=== PATIENT | male | born 1935 ===

== ENCOUNTER 2018-02-24 13:02 | Emergency (ER) | payer OTHER ==
[~2018-02-24] VITALS: Ht 167.6 cm; Wt 79.8 kg
[~2018-02-24 13:02] MED LIST: ASPIR 8181 MG; BUSPIRONE HCL15 MG; CARTIA XT240 MG PO; CLONAZEPAM0.5 MG PO; COZAAR50 MG; COZAAR50 MG PO; HYDROCHLOROTH12.5 M1 PO; INTEGRA PLUS C1 EACH PO; NAMENDA10 MG PO; POM (MEDICAMENTO EN TOP; PRAVASTATIN SOD10 MG; PRAVASTATIN SOD10 MG PO; PROTONIX40 MG PO; TRAZODONE HCL100 MG; TRAZODONE HCL50 MG PO
[2018-02-24] MEDS ORDERED: BUSPIRONE HCL15 MG (13:38)
[2018-02-24] MEDS ORDERED: COZAAR100 MG (13:38)
[2018-02-24] MEDS ORDERED: PRAVASTATIN SOD20 MG (13:38)
[2018-02-24] MEDS ORDERED: RIVASTIGMINE1 EAC2 (13:39)
[2018-02-24] MEDS ORDERED: REMERON15 MG (13:39)
[2018-02-24] MEDS ORDERED: NAMENDA10 MG (13:39)
== END 2018-02-24 18:54 | disposition home or self-care (01) ==
LOC: ER 13:02
DX: N39.0 Urinary tract infection, site not specified (principal); R50.9 Fever, unspecified

== ENCOUNTER → 2019-01-07 | Emergency (ER) | payer OTHER ==
[~2019-01-07] VITALS: Ht 167.6 cm; Wt 72.6 kg
[~2019-01-07] MED LIST changes: +COZAAR100 MG; +NAMENDA10 MG; +PRAVASTATIN SOD20 MG; +REMERON15 MG; +RIVASTIGMINE1 EAC2
== END | disposition home or self-care (01) ==
LOC: ER 14:59
DX: L02.213 Cutaneous abscess of chest wall (principal); B95.61 Methicillin susceptible Staphylococcus aureus infection as the cause of diseases classified elsewhere

== ENCOUNTER 2020-05-23 09:37 | Inpatient (IN) | payer OTHER ==
[~2020-05-23] VITALS: Ht 167.6 cm; Wt 68.0 kg
[2020-05-23] MEDS ORDERED: ADULT LOW DOSE81 M1 (11:05)
[2020-05-23] MEDS ORDERED: [UNRECOGNIZED DRUG - OTHER] (11:05)
[2020-06-02] MEDS ORDERED: LOSARTAN POTAS100 MG PO (10:14)
[2020-06-02] MEDS ORDERED: NAMENDA10 MG PO (10:15)
[2020-06-02] MEDS ORDERED: INTESTINEX680 M1 PO (10:15)
[2020-06-02] MEDS ORDERED: Neurin-Sl Tablet Sl SL (10:16)
[2020-06-02] MEDS ORDERED: B Complex CAPSULE PO (10:16)
[2020-06-02] MEDS ORDERED: PREVACID30 MG PO (10:17)
== END 2020-06-02 14:42 | disposition home or self-care (01) | DRG 812 ==
LOC: ER 09:37 → MEDJ 21:06
PROVIDERS: ADMIT Internal Medicine; ATTEND Internal Medicine
PROC: 4A033R1 Measurement of Arterial Saturation, Peripheral, Percutaneous Approach (ICD-10-PCS; 2020-05-23)
PROC: 30233N1 Transfusion of Nonautologous Red Blood Cells into Peripheral Vein, Percutaneous Approach (ICD-10-PCS; principal; 2020-05-24)
PROC: B24BZZZ Ultrasonography of Heart with Aorta (ICD-10-PCS; 2020-05-26)
PROC: CD271ZZ Tomographic (Tomo) Nuclear Medicine Imaging of Gastrointestinal Tract using Technetium 99m (Tc-99m) (ICD-10-PCS; 2020-05-29)
DX: D64.9 Anemia, unspecified (principal); N39.0 Urinary tract infection, site not specified; K92.1 Melena; Z16.12 Extended spectrum beta lactamase (ESBL) resistance; K52.9 Noninfective gastroenteritis and colitis, unspecified; E86.0 Dehydration; Z20.822 Contact with and (suspected) exposure to COVID-19; L89.219 Pressure ulcer of right hip, unspecified stage; B96.1 Klebsiella pneumoniae [K. pneumoniae] as the cause of diseases classified elsewhere; B96.4 Proteus (mirabilis) (morganii) as the cause of diseases classified elsewhere; L89.159 Pressure ulcer of sacral region, unspecified stage; E78.00 Pure hypercholesterolemia, unspecified